=== PATIENT | male | born 1955 | race Caucasian/White ===

== ENCOUNTER 2022-02-23 20:51 | Inpatient (IN) | payer BC, OTHER ==
[~2022-02-23] VITALS: Ht 170.2 cm; Wt 70.8 kg
[2022-02-23 21:14] VITALS: BP_SYST 110
[2022-02-23 22:01] LABS: BASOPHILS # (AUTO) 0.1 K/uL (0.0-0.2); BASOPHILS % (AUTO) 1.4 % (0.0-2.0); EOSINOPHILS % (AUTO) 0.3 % (0.0-4.0); HEMATOCRIT 41.3 % (36-54); HEMOGLOBIN 14.4 g/dL (14.0-18.0); LYMPHOCYTES # (AUTO) 1.6 K/uL (1.0-5.5); LYMPHOCYTES % (AUTO) 16.5 % (20.5-51.5); MEAN CORPUSCULAR HEMOGLOBIN 31 pg (27-31); MEAN CORPUSCULAR HGB CONC 35 % (32-36); MEAN CORPUSCULAR VOLUME 89 fL (79.0-98.0); MONOCYTES # (AUTO) 0.6 K/uL (0.0-1.0); MONOCYTES % (AUTO) 6.4 % (1.7-9.3); NEUTROPHILS # (AUTO) 7.4 K/uL (1.8-7.7); NEUTROPHILS % (AUTO) 75.4 % (40.0-70.0); PLATELET COUNT (AUTO) 194 K/uL (130-430); RED BLOOD CELL COUNT(AUTO) 4.64 MIL/uL (4.2-6.2); RED CELL DISTRIBUTION WIDTH 15.4 % (9.0-15.0); WHITE BLOOD COUNT (AUTO) 9.9 K/uL (4.8-10.8)
[2022-02-23 22:15] LABS: CALCIUM 8.3 mg/dL (8.4-11.0); CREATININE 1.28 mg/dL (0.55-1.30); POTASSIUM 3.8 mmol/L (3.5-5.1)
[2022-02-23 22:21] LABS: ALBUMIN 3.6 g/dL (3.4-4.8); TOTAL BILIRUBIN 0.5 mg/dL (0.0-1.0)
--- NOTE | 2022-02-23 22:56 | NUR ---
Patient ambulatory to bed 1 for evaluation and treatment
[2022-02-24] MEDS ORDERED: NACL 0.9% 1,000 ML IV ONE (00:15)
[2022-02-24] MEDS ORDERED: MORPHINE 4 MG INJ. 4 MG/ML VIAL IVP ONE (00:15)
[2022-02-24] MEDS ORDERED: ONDANSETRON HCL 4 MG/2 ML VIAL IVP ONE (00:15)
[2022-02-24 01:37] LABS: BILIRUBIN,URINE NEGATIVE (NEGATIVE); BLOOD, URINE NEGATIVE (NEGATIVE); CLARITY/URINE CLEAR (CLEAR); COLOR,URINE YELLOW (YELLOW); GLUCOSE,URINE NEGATIVE (NEGATIVE); KETONES,URINE NEGATIVE (NEGATIVE); LEUKOCYTE ESTERASE ,URINE NEGATIVE (NEGATIVE); NITRITE, URINE NEGATIVE (NEGATIVE); PROTEIN URINE NEGATIVE (NEGATIVE); UROBILINOGEN,URINE 0.2 (0.2-1.0)
[2022-02-24] MEDS ORDERED: metroNIDAZOLE 500 mg/NS 100 ML IV ONE ×2 (02:30→05:16)
[2022-02-24] MEDS ORDERED: HYDROmorphone 1 MG/ML INJ. CARTRIDGE IVP ONE ×2 (02:30→05:15)
[2022-02-24] MEDS: CIPROFLOXACIN LACT 400 MG/D5W 200 ML IV SCH ×3 (02:56→23:43)
[2022-02-24] MEDS ORDERED: LORazepam 2 MG/ML VIAL ONE (03:12)
[2022-02-24] MEDS ORDERED: KETAMINE HCL 500 MG/10 ML VIAL IVP ONE (03:15)
[2022-02-24] MEDS ORDERED: LORazepam 2 MG/ML VIAL IVP ONE ×2 (03:15→05:15)
[2022-02-24] MEDS ORDERED: ONDANSETRON HCL 4 MG/2 ML VIAL IVP PRN ×2 (06:00→09:30)
[2022-02-24] MEDS ORDERED: MORPHINE 4 MG INJ. 4 MG/ML VIAL IVP PRN (06:00)
--- NOTE | 2022-02-24 06:15 | NUR ---
Admit bed requested Patient will be admitted to care of Admitted to MS unit. Diagnosis Acute Enteritis Inpatient (Yes or No) yes Observation (Yes or No) no Orientation concerns or request close to nursing station (Yes or No) no Covid Status negative On vent or bipap no Isolation requirements no Needs a sitter no From Home (Yes or if No enter name of facility) no Requires Dialysis (Yes or No) no Med Rec Completed (Yes of No)
--- NOTE | 2022-02-24 07:30 | NUR ---
ASSUMED CARE OF PT AT THIS TIME. REPORT RECEIVED. PT HERE FOR RUQ ABD PAIN X1 DAY. DENIES N/V. REPORTS PAIN 67/10 AT THIS TIME. VSS. AWAITING ADMISSION. WILL CONT TO MONITOR
[2022-02-24] MEDS ORDERED: TUBERCULIN,PURIF.PROT.DERIV. 0.1 ML SYR ID ONE (07:31)
[2022-02-24] MEDS ORDERED: DOCUSATE SODIUM 100 MG/10 ML UDC PO PRN (09:30)
[2022-02-24] MEDS ORDERED: ZOLPIDEM TARTRATE 5 MG TABLET PO PRN (09:30)
[2022-02-24] MEDS ORDERED: guaiFENesin/DEXTROMETHORPHAN 10 ML UDC PO PRN (09:30)
[2022-02-24] MEDS ORDERED: ACETAMINOPHEN 500 MG TABLET PO PRN (09:30)
[2022-02-24] MEDS ORDERED: HYDROcodone/ACETAMIN 7.5-325 MG TAB PO PRN (09:30)
[2022-02-24] MEDS ORDERED: KETOROLAC TROMETHAMINE 15 MG VIAL IVP PRN (09:45)
[2022-02-24] MEDS ORDERED: methylPREDNISolone SOD SUCC/PF 62.5 MG/ML VIAL IVP ONE (10:00)
[2022-02-24] MEDS ORDERED: PANTOPRAZOLE SODIUM 40 MG TAB PO ONE (10:30)
--- NOTE | 2022-02-24 10:34 | NUR ---
CONSULTATION PAGED/CALLED Reason for Consultation: [] ACUTE ENTERITIS Person Who was Notified: [] LEISA Consulting Physician: [] DR DORSEY Crane Hooker Specialty: [] GI Ordering Physician: [] DR PEACE
[2022-02-24 10:35] VITALS: BP_SYST 130
--- NOTE | 2022-02-24 10:35 | NUR ---
ADMISSION NOTE: Received patient from ER via wheelchair. Patient admitted with diagnosis of Acute Enteritis . Patient is awake, alert, oriented X 4. Patient oriented to hospital room, call light, toileting, pain management and safety-teach back done. Patient informed that their room number is 109A. Personal belongings checked and Belongings List documented. Call light within reach.
[2022-02-24 11:06] LABS: PROTHROMBIN TIME 10.4 SECS (9.5-12.5)
[2022-02-24] MEDS: D5NS 1,000 ML IV SCH ×2 (11:11→17:38)
[2022-02-24] MEDS: MORPHINE 2 MG/ML INJ. SYRINGE IVP PRN ×3 (11:17→20:03)
[2022-02-24 11:18] LABS: FREE T4 (FREE THYROXINE) 0.7 ng/dl (0.8-1.5); PHOSPHORUS 3.5 mg/dL (2.7-4.5); THYROID STIMULATING HORMONE 2.42 uIu/mL (0.36-3.74)
[2022-02-24 14:30] VITALS: BP_SYST 123
--- NOTE | 2022-02-24 19:00 | NUR ---
CLOSING NOTES: Patient resting in bed, all needs met throughout shift, IV in place, patent and infusing well, BRP, safety precaution observed, call light within reach. Will endorse to farm owner operator nurse.
[2022-02-24 20:00] VITALS: BP_SYST 114
--- NOTE | 2022-02-24 20:00 | NUR ---
RECEIVED PATIENT ALERT, ORIENTED, ABLE TO MAKE NEEDS KNOWN, NO S/S OF DISTRESS OR DISCOMFORT NOTED, BREATHING EVEN AND UNLABORED, BRP, IV IN PLACE, INTACT AND INFUSING WELL, SAFETY PRECAUTIONS OBSERVED, BED IN LOWEST POSITION, CALL LIGHT WITHIN REACH, WILL CONTINUE TO MONITOR.
[2022-02-24] MEDS ORDERED: CIPROFLOXACIN LACT 400 MG/D5W 200 ML IV ONE (23:14)
[2022-02-25] VITALS: BP_SYST 117
[2022-02-25] MEDS: MORPHINE 2 MG/ML INJ. SYRINGE IVP PRN ×5 (00:16→22:26)
[2022-02-25] MEDS: D5NS 1,000 ML IV SCH ×3 (03:02→18:50)
--- NOTE | 2022-02-25 06:43 | NUR ---
PT RESTING COMFORTABLY IN BED, NO DISTRESS OR DISCOMFORT NOTED, REPOSITIONS SELF PER COMFORT, ALL FALL PROTOCOLS IMPLEMENTED, WILL CONTINUE TO MONITOR.
[2022-02-25 07:14] LABS: BASOPHILS % (AUTO) 0.2 % (0.0-2.0); HEMATOCRIT 35.8 % (36-54); HEMOGLOBIN 12.4 g/dL (14.0-18.0); LYMPHOCYTES # (AUTO) 1.1 K/uL (1.0-5.5); LYMPHOCYTES % (AUTO) 12.9 % (20.5-51.5); MEAN CORPUSCULAR HEMOGLOBIN 31 pg (27-31); MEAN CORPUSCULAR HGB CONC 35 % (32-36); MEAN CORPUSCULAR VOLUME 89 fL (79.0-98.0); MONOCYTES # (AUTO) 0.7 K/uL (0.0-1.0); MONOCYTES % (AUTO) 8.5 % (1.7-9.3); NEUTROPHILS # (AUTO) 6.9 K/uL (1.8-7.7); NEUTROPHILS % (AUTO) 78.4 % (40.0-70.0); PLATELET COUNT (AUTO) 176 K/uL (130-430); RED CELL DISTRIBUTION WIDTH 15.2 % (9.0-15.0); WHITE BLOOD COUNT (AUTO) 8.7 K/uL (4.8-10.8)
--- NOTE | 2022-02-25 07:15 | NUR ---
SHIFT CHANGE REPORT REPORT GIVEN TO SAM ALEXANDER FOR CONTINUITY OF CARE, ALL QUESTIONS WERE ANSWERED AND RN VERBALIZED UNDERSTANDING.
[2022-02-25 08:00] VITALS: BP_SYST 122
--- NOTE | 2022-02-25 08:00 | NUR ---
OPENING NOTES: PATIENT RESTING IN BED. BREATHING EVEN AND NON LABORED TO RA. FALL AND SAFETY MEASURES REINFORCED. CALL LIGHT WITHIN REACH
--- NOTE | 2022-02-25 08:00 | NUR ---
OPENING NOTES: PATIENT RESTING IN BED. BREATHING EVEN AND NON LABORED TO RA. FALL AND SAFETY MEASURES REINFORCED. CALL LIGHT WITHIN REACH.
[2022-02-25 08:04] LABS: CREATININE 0.87 mg/dL (0.55-1.30); POTASSIUM 3.8 mmol/L (3.5-5.1)
[2022-02-25] MEDS ORDERED: POTASSIUM CHLORIDE 20 MEQ TAB.PRT.SR PO PRN (09:00)
[2022-02-25 09:34] LABS: CALCIUM 6.7 mg/dL (8.4-11.0)
[2022-02-25] MEDS: PANTOPRAZOLE SODIUM 40 MG TAB PO SCH (09:55)
[2022-02-25] MEDS: CIPROFLOXACIN LACT 400 MG/D5W 200 ML IV SCH ×2 (10:49→22:00)
[2022-02-25] MEDS ORDERED: POLYETHYLENE GLYCOL 3350, 17 GM/ POWD.PACK PO ONE (11:15)
[2022-02-25] MEDS ORDERED: GASTROGRAFIN 120 ML ONE (11:30)
[2022-02-25 12:00] VITALS: BP_SYST 118
[2022-02-25 16:00] VITALS: BP_SYST 115
--- NOTE | 2022-02-25 19:10 | NUR ---
CLOSING NOTES: PATIENT RESTING IN BED. NO S/S OF ACUTE DISTRESS NOTED. NEEDS MET THROUGHOUT SHIFT. ENDORSED TO HORSEBACK RIDING INSTRUCTOR RN.
[2022-02-25 20:00] VITALS: BP_SYST 111
[2022-02-26] MEDS: MORPHINE 2 MG/ML INJ. SYRINGE IVP PRN ×5 (02:48→23:26)
[2022-02-26] MEDS: D5NS 1,000 ML IV SCH ×3 (03:32→20:03)
[2022-02-26 07:22] LABS: BASOPHILS # (AUTO) 0.1 K/uL (0.0-0.2); BASOPHILS % (AUTO) 0.7 % (0.0-2.0); EOSINOPHILS # (AUTO) 0.2 K/uL (0.0-0.4); EOSINOPHILS % (AUTO) 2.7 % (0.0-4.0); HEMATOCRIT 34.8 % (36-54); LYMPHOCYTES # (AUTO) 2.6 K/uL (1.0-5.5); LYMPHOCYTES % (AUTO) 31.4 % (20.5-51.5); MEAN CORPUSCULAR HEMOGLOBIN 31 pg (27-31); MEAN CORPUSCULAR HGB CONC 35 % (32-36); MEAN CORPUSCULAR VOLUME 90 fL (79.0-98.0); MONOCYTES # (AUTO) 0.7 K/uL (0.0-1.0); MONOCYTES % (AUTO) 8.6 % (1.7-9.3); NEUTROPHILS # (AUTO) 4.7 K/uL (1.8-7.7); NEUTROPHILS % (AUTO) 56.6 % (40.0-70.0); PLATELET COUNT (AUTO) 176 K/uL (130-430); RED BLOOD CELL COUNT(AUTO) 3.85 MIL/uL (4.2-6.2); RED CELL DISTRIBUTION WIDTH 15.6 % (9.0-15.0); WHITE BLOOD COUNT (AUTO) 8.4 K/uL (4.8-10.8)
[2022-02-26 07:30] VITALS: BP_SYST 107
[2022-02-26 07:40] LABS: CREATININE 0.84 mg/dL (0.55-1.30); POTASSIUM 3.4 mmol/L (3.5-5.1)
[2022-02-26 07:56] LABS: CALCIUM 7.8 mg/dL (8.4-11.0)
[2022-02-26] MEDS ORDERED: DICYCLOMINE HCL 10 MG/5 ML SOLUTION PO PRN ×2 (10:30→10:57)
[2022-02-26] MEDS: PANTOPRAZOLE SODIUM 40 MG TAB PO SCH (11:04)
[2022-02-26 12:30] VITALS: BP_SYST 132
--- NOTE | 2022-02-26 12:56 | NUR ---
Dietitian Recommendations * Continue w/ mechanical soft diet Please refer to Nutrition Assessment for details. Addendum: 02/26/22 at [address] Amended: Links added.
[2022-02-26] MEDS: POLYETHYLENE GLYCOL 3350, 17 GM/ POWD.PACK PO SCH (12:59)
[2022-02-26] MEDS ORDERED: MAGNESIUM CITRATE 300 ML ORAL SOLUTION PO ONE (15:00)
[2022-02-26 16:30] VITALS: BP_SYST 128
[2022-02-27 03:30] VITALS: BP_SYST 125
[2022-02-27] MEDS: MORPHINE 2 MG/ML INJ. SYRINGE IVP PRN ×3 (03:33→12:59)
[2022-02-27 04:00] VITALS: BP_SYST 125
[2022-02-27] MEDS: D5NS 1,000 ML IV SCH ×2 (04:24→11:48)
[2022-02-27 06:41] LABS: BASOPHILS # (AUTO) 0.1 K/uL (0.0-0.2); BASOPHILS % (AUTO) 0.8 % (0.0-2.0); EOSINOPHILS # (AUTO) 0.2 K/uL (0.0-0.4); EOSINOPHILS % (AUTO) 2.8 % (0.0-4.0); HEMATOCRIT 34.5 % (36-54); LYMPHOCYTES # (AUTO) 2.8 K/uL (1.0-5.5); LYMPHOCYTES % (AUTO) 35.4 % (20.5-51.5); MEAN CORPUSCULAR HEMOGLOBIN 31 pg (27-31); MEAN CORPUSCULAR HGB CONC 35 % (32-36); MEAN CORPUSCULAR VOLUME 89 fL (79.0-98.0); MONOCYTES # (AUTO) 0.9 K/uL (0.0-1.0); MONOCYTES % (AUTO) 11.8 % (1.7-9.3); NEUTROPHILS # (AUTO) 3.9 K/uL (1.8-7.7); NEUTROPHILS % (AUTO) 49.2 % (40.0-70.0); PLATELET COUNT (AUTO) 184 K/uL (130-430); RED BLOOD CELL COUNT(AUTO) 3.87 MIL/uL (4.2-6.2); RED CELL DISTRIBUTION WIDTH 15.4 % (9.0-15.0); WHITE BLOOD COUNT (AUTO) 7.9 K/uL (4.8-10.8)
[2022-02-27 07:33] LABS: CALCIUM 7.3 mg/dL (8.4-11.0); CREATININE 0.9 mg/dL (0.55-1.30); POTASSIUM 3.5 mmol/L (3.5-5.1)
[2022-02-27 08:00] VITALS: BP_SYST 127
--- NOTE | 2022-02-27 08:00 | NUR ---
Morning notes: Pt is A/Ox4, resting in bed. No s/s respiratory ar cardiac distress. RAC IV site is clean dry and intact with ordered fluids running. Fall and safety precautions are in place, call light with in reach, will continue to monitor.
[2022-02-27] MEDS: PANTOPRAZOLE SODIUM 40 MG TAB PO SCH (08:48)
[2022-02-27] MEDS: POLYETHYLENE GLYCOL 3350, 17 GM/ POWD.PACK PO SCH (08:48)
[2022-02-27 12:00] VITALS: BP_SYST 125
[2022-02-27 16:00] VITALS: BP_SYST 125
[2022-02-27] MEDS ORDERED: HYDROmorphone 1 MG/ML INJ. CARTRIDGE IVP PRN (18:45)
[2022-02-27] MEDS ORDERED: NALOXONE HCL 0.4 MG/ML AMP (NARCAN) IVP PRN (18:45)
--- NOTE | 2022-02-27 18:59 | NUR ---
Closing notes: Pt is A/Ox4, resting in bed. No s/s of respiratory or cardiac distress. RAC IV site is clean dry and intact SL. Fall and safety precautions are in place, call light with in reach, will endorse to commercial airline pilot.
[2022-02-27] MEDS: cephALEXin 500 MG CAPSULE PO SCH ×2 (19:05→23:03)
--- NOTE | 2022-02-27 19:15 | NUR ---
OPENING NOTE REPORT RECEIVED FROM DAYSHIFT NURSE. PATIENT RECEIVED LYING IN BED, AWAKE, NO S/S OF ACUTE DISTRESS. BREATHING EVEN AND UNLABORED. IV SITE PATENT, NO SIGNS OF INFILTRATION OR INFECTION NOTED. CALL LIGHT WITH PATIENT. BED IS LOCKED AND AT LOWEST POSITION. WILL CONTINUE TO MONITOR.
[2022-02-27 20:00] VITALS: BP_SYST 136
[2022-02-27] MEDS: HYDROmorphone 1 MG/ML INJ. CARTRIDGE IVP PRN (23:04)
[2022-02-28] VITALS: BP_SYST 124
[2022-02-28] MEDS: HYDROmorphone 1 MG/ML INJ. CARTRIDGE IVP PRN ×5 (03:03→22:43)
--- NOTE | 2022-02-28 06:34 | NUR ---
CLOSING NOTE PATIENT IN BED, RESTING AT THIS TIME. NO S/S OF ACUTE DISTRESS NOTED. BREATHING EVEN AND UNLABORED. HOB RAISED. IV SITE PATENT, NO SIGNS OF INFILTRATION OR INFECTION NOTED. ALL NEEDS MET THROUGHOUT SHIFT. FALL, SAFETY PRECAUTIONS MAINTAINED THROUGHOUT SHIFT. WILL CONTINUE TO MONITOR UNTIL PATIENT CARE IS ENDORSED TO ONCOMING DAYSHIFT NURSE.
[2022-02-28 06:38] LABS: BASOPHILS # (AUTO) 0.1 K/uL (0.0-0.2); EOSINOPHILS # (AUTO) 0.3 K/uL (0.0-0.4); EOSINOPHILS % (AUTO) 3.5 % (0.0-4.0); HEMATOCRIT 38.3 % (36-54); HEMOGLOBIN 13.3 g/dL (14.0-18.0); LYMPHOCYTES # (AUTO) 2.5 K/uL (1.0-5.5); MEAN CORPUSCULAR HEMOGLOBIN 31 pg (27-31); MEAN CORPUSCULAR HGB CONC 35 % (32-36); MEAN CORPUSCULAR VOLUME 89 fL (79.0-98.0); MONOCYTES # (AUTO) 0.8 K/uL (0.0-1.0); MONOCYTES % (AUTO) 10.3 % (1.7-9.3); NEUTROPHILS # (AUTO) 4.3 K/uL (1.8-7.7); NEUTROPHILS % (AUTO) 54.2 % (40.0-70.0); PLATELET COUNT (AUTO) 210 K/uL (130-430); RED BLOOD CELL COUNT(AUTO) 4.32 MIL/uL (4.2-6.2)
[2022-02-28] MEDS: cephALEXin 500 MG CAPSULE PO SCH ×3 (06:46→17:34)
[2022-02-28 07:10] LABS: CALCIUM 7.9 mg/dL (8.4-11.0); CREATININE 0.81 mg/dL (0.55-1.30); POTASSIUM 3.3 mmol/L (3.5-5.1)
[2022-02-28 08:00] VITALS: BP_SYST 106
[2022-02-28] MEDS: POLYETHYLENE GLYCOL 3350, 17 GM/ POWD.PACK PO SCH (09:02)
[2022-02-28] MEDS: PANTOPRAZOLE SODIUM 40 MG TAB PO SCH (09:02)
[2022-02-28] MEDS ORDERED: HYDROcodone/ACETAMIN 5-325 MG TAB (NORCO/ VICODIN) PO PRN (09:30)
[2022-02-28] MEDS ORDERED: NALOXONE HCL 0.4 MG/ML AMP (NARCAN) IVP PRN (09:30)
[2022-02-28] MEDS ORDERED: BISACODYL 5 MG TABLET.DR (DULCOLAX) PO ONE (17:00)
[2022-02-28] MEDS ORDERED: GOLYTELY / COLYTE SOLUTION 4 LITERS PO ONE (18:00)
--- NOTE | 2022-02-28 19:00 | NUR ---
PATIENT REMAINED COMFORTABLE W/O ANY CHANGE IN LOC. MEDICATED PRN FOR ABDOMINAL PAIN. CLEAR LIQUID FOR NOW NPO POST MIDNIGHT FOR EGD AND COLONOSCOPY TOMORROW. BOWEL PREP STARTED ORDERED. ENDORSED PATIENT TO PM SHIFT NURSE.
--- NOTE | 2022-02-28 19:30 | NUR ---
PM OPENING NOTES HAND-OFF REPORT RECEIVED FROM SUSANA ALEXANDER. ENDORSED PT NPO AFTER MN FOR EGD/COLONOSCOPY. GOLYTELY BEGAN PT TOLERATING WELL WITH RESULTS ON-GOING. REPORTED CONSENTS SIGNED AND ON CHART. L WRIST 22 GA INTACT. PT OBSERVED A/0X4, GAIT STEADY. DENIES NEEDS PRESENTLY. BED IN LOWEST POSITION AND WHEELS LOCKED. CALL LIGHT FUNCTIONING. CONT TO MONITOR AND ASSIST NEEDED.
[2022-02-28 20:00] VITALS: BP_SYST 104
[2022-03-01] VITALS: BP_SYST 110
--- NOTE | 2022-03-01 | NUR ---
PRN MEDS FOR PAIN SEE E-MAR. PT PAIN LEVEL /10. DILAUDID BRINGS TO 5/10 AT BEST. CONT'D PT TEACHING CONCERNING CHG BATH 1.5 HOURS PRIOR TO PROCEDURE AND NPO PROTOCOL. VERY FREQUENT EVACUATION OF BOWELS THRU OUT NOC. CONT TO MONITOR. GOLYTELY COMPLETED
[2022-03-01] MEDS: HYDROmorphone 1 MG/ML INJ. CARTRIDGE IVP PRN ×3 (03:19→13:00)
[2022-03-01 04:00] VITALS: BP_SYST 118
[2022-03-01 05:19] LABS: CALCIUM 8.5 mg/dL (8.4-11.0); CREATININE 0.84 mg/dL (0.55-1.30); POTASSIUM 3.6 mmol/L (3.5-5.1)
[2022-03-01 05:23] LABS: BASOPHILS # (AUTO) 0.1 K/uL (0.0-0.2); BASOPHILS % (AUTO) 1.2 % (0.0-2.0); EOSINOPHILS # (AUTO) 0.3 K/uL (0.0-0.4); EOSINOPHILS % (AUTO) 3.8 % (0.0-4.0); HEMATOCRIT 40.3 % (36-54); HEMOGLOBIN 13.9 g/dL (14.0-18.0); LYMPHOCYTES # (AUTO) 2.4 K/uL (1.0-5.5); LYMPHOCYTES % (AUTO) 26.2 % (20.5-51.5); MEAN CORPUSCULAR HEMOGLOBIN 31 pg (27-31); MEAN CORPUSCULAR HGB CONC 35 % (32-36); MEAN CORPUSCULAR VOLUME 89 fL (79.0-98.0); MONOCYTES # (AUTO) 1.1 K/uL (0.0-1.0); MONOCYTES % (AUTO) 11.7 % (1.7-9.3); NEUTROPHILS # (AUTO) 5.2 K/uL (1.8-7.7); NEUTROPHILS % (AUTO) 57.1 % (40.0-70.0); PLATELET COUNT (AUTO) 183 K/uL (130-430); RED BLOOD CELL COUNT(AUTO) 4.52 MIL/uL (4.2-6.2); RED CELL DISTRIBUTION WIDTH 15.5 % (9.0-15.0); WHITE BLOOD COUNT (AUTO) 9.1 K/uL (4.8-10.8)
[2022-03-01] MEDS: cephALEXin 500 MG CAPSULE PO SCH ×2 (06:00)
[2022-03-01] MEDS ORDERED: BENZOCAINE 20% 0.5mL UD SPRAY MM ONE (07:27)
[2022-03-01] MEDS ORDERED: SIMETHICONE 40 MG/0.6 ML ML ONE (07:27)
[2022-03-01] MEDS ORDERED: fentaNYL CITRATE/PF 100 MCG/2 ML AMP ONE (07:28)
[2022-03-01] MEDS ORDERED: MEPERIDINE 100 MG INJ. 100 MG/ML VIAL ONE (07:28)
--- NOTE | 2022-03-01 07:30 | NUR ---
CLOSING NOTES PM SHIFT PRN PAIN MED AT THIS TIME SEE EMAR. HAND-OFF REPORT TO SUSANA ALEXANDER. NPO SINCE MN, FREQUENT BOWEL MOVEMENTS AND CLEARING NICELY. ON SCHEDULE FOR 0930 FOR PROCEDURE. INSTRUCTED CHG BATH FOR 0800. CHG [place] AND [place] PROVIDED FOR PROVIDED FOR PT IN BATHROOM. STATED UNDERSTOOD. RELINQUISHED CARE TO SUSANA ALEXANDER.
[2022-03-01] MEDS: MIDAZOLAM HCL 5 MG/5 ML VIAL ONE ×3 (08:56→09:09)
[2022-03-01] MEDS ORDERED: POLY17PO4 PO (12:49)
[2022-03-01 15:59] VITALS: BP_SYST 112
--- NOTE | 2022-03-01 16:28 | NUR ---
Discharge appointments and vendors arranged by [facility] [employer]. Dr. Franklin [facility] will call with date and time Dr. Mehta Engineer Sergeant [facility] will call with date and time Please call Patient Support Center [phone] for worsening symptoms or trouble getting your medicine. For care needs when provider office is closed, contact Lana [facility] at [phone] or Mercedes [facility] [phone].
--- NOTE | 2022-03-01 16:30 | NUR ---
0800: AWAKE, ALERT, ORIENTED X 4 TO NAME, PERSON, PLACE, AND TIME. RESPIRATION EVEN AND UNLABORED NO S/S OF ANY ACUTE DISTRESS NOTED. ABLE TO VERBALIZE NEED NO C/O ANY PAIN OR DISCOMFORT NOTED. ABDOMEN SOFT AND NON-DISTENDED, POSITIVE BOWEL SOUND X 4 NO N/V OR DIARRHEA NOTED. SKIN WARM AND DRY INTACT W/O ANY REDNESS OR EDEMA NOTED. OLD IV SITE RIGHT UPPER ARM SWOLLEN AND WARM TO TOUCH, OFFERED ICE PACK FOR SITE PATIENT REFUSED. PATIENT IS NPO TODAY FOR SCHEDULE EGD AND COLONOSCOPY BY DR. Clyde MAC. BOWEL PREP COMPLETED WITH GOOD RESULT. WILL CONTINUE TO MONITOR PATIENT 1030: PATIENT LEFT THE UNIT FOR EGD AND COLONOSCOPY PLANNED, 1200: PATIENT BACK FROM GI LAB, FINDING: GERD, GASTRITIS, TI STRICTURE. OK TO ADVANCED DIET TO SOFT. 1630: TOLERATED PO WELL WITH FAIR APPETITE NO N/V NOTED. DR. DOBBINS ON THE UNIT. PATIENT OK TO DC'D HOME WITH NEW PRESCRIPTION FOR MIRALAX PO PRN. DISCHARGE INSTRUCTION GIVEN INCLUDING S/S OF INFECTION DUE TO RIGHT UPPER ARM IV INFILTRATE THAT IS RED AND SWOLLEN, INSTRUCTED PATIENT TO KEEP SITE CLEAN APPLY TROPICAL ANTIBIOTIC AND MONITOR FOR PURULENT DRAINAGE. IF FEVERISH AND DRAINAGE FROM SITE TO MD OFFICE OR THE NEAREST ER FOR TREATMENT. PATIENT AND SPOUSE BOTH VERBALIZE UNDERSTANDING AND WILL COMPLY WITH DC'D INSTRUCTION GIVEN. F/U WITH OWN PRIMARY CARE PHYSICIAN AND DR. MAC NEXT WEEK.
--- NOTE | 2022-03-01 16:48 | NUR ---
Patient: REMEDIOS GAMBOA Provider: GINGER MCCRAY Provider Date and Time: 03/06/2022 02:00 PM Appointment Type: PCP Appointment
--- NOTE | 2022-03-08 14:57 | NUR ---
Needle Polisher MENTAL HEALTH COUNSELOR made a Post Discharge Follow Up Phone Call to former pt. who stated, "I never want to hear from [facility] again" Click....
== END 2022-03-01 16:22 | disposition home or self-care (01) | DRG 386 ==
LOC: SED 20:51 → SMU 02-24 06:00
PROVIDERS: ADMIT Family Medicine; ATTEND Internal Medicine
PROC: 0D7E8ZZ Dilation of Large Intestine, Via Natural or Artificial Opening Endoscopic (ICD-10-PCS; 2022-03-01)
PROC: 0DB98ZX Excision of Duodenum, Via Natural or Artificial Opening Endoscopic, Diagnostic (ICD-10-PCS; principal; 2022-03-01 08:45)
PROC: 0DB78ZX Excision of Stomach, Pylorus, Via Natural or Artificial Opening Endoscopic, Diagnostic (ICD-10-PCS; 2022-03-01 08:45)
PROC: 0DBB8ZX Excision of Ileum, Via Natural or Artificial Opening Endoscopic, Diagnostic (ICD-10-PCS; 2022-03-01 08:45)
DX: K50.90 Crohn's disease, unspecified, without complications (principal); E87.1 Hypo-osmolality and hyponatremia; K59.00 Constipation, unspecified; Z20.822 Contact with and (suspected) exposure to COVID-19; K21.9 Gastro-esophageal reflux disease without esophagitis; K29.70 Gastritis, unspecified, without bleeding; K64.8 Other hemorrhoids
CPT/HCPCS: 36415; 43239; 45380; 71045; 74250-TC; 76376; 76705; 80048; 80053; 80061; 81003; 82150; 83036; 83605; 83690; 83735; 83880; 84100; 84439; 84443; 85025; 85610-TC; 85651-TC; 85730-TC; 86140; 86580; 87081; 88305; 88312; 88313; 96374; 96375; 96376; 99285; J0744; J1170; J1885; J2060; J2175; J2250; J2270; J2405; J2930; J3010; J3490; J7030; Q9963

== ENCOUNTER 2022-06-24 09:36 | Emergency (ER) | payer OTHER, BC ==
[~2022-06-24] VITALS: Ht 170.2 cm; Wt 70.3 kg
[~2022-06-24 09:36] MED LIST: POLY17PO4 PO
[2022-06-24 09:43] VITALS: BP_SYST 134
[2022-06-24] MEDS ORDERED: traMADol HCL HCL 50 MG TABLET (ULTRAM) PO ONE (10:00)
[2022-06-24] MEDS ORDERED: NAPROXEN 250 MG TABLET PO ONE (10:00)
--- NOTE | 2022-06-24 10:00 | NUR ---
MD DR JENKINS AT BEDSIDE
--- NOTE | 2022-06-24 10:11 | NUR ---
PT BIB SELF AWAKE AND ALERT, AO X4. PT C/O PAIN TO R SHOULDER, TRAPEZIUSA MUSCLE X11 DAYS. PT STATS PAIN 8/10, THAT RADIATES TO R ELBOW AND FINGERS. PT DENIES N/V, TRAUMA. PT STATES HIS ARM HURTS IF HE STAND UP, THE ONLY WAY TO RELIEVE THE PAIN HIS TO SIT AND PLACE HIS R ARM ON PILLOWS. PT HAD HX OF ABDOMINAL SX AND BILATERAL KNEE SX.
[2022-06-24] MEDS ORDERED: predniSONE 20 MG TABLET PO ONE (10:15)
[2022-06-24] MEDS ORDERED: TRAM50TA PO (11:13)
[2022-06-24] MEDS ORDERED: PRED50TA PO (11:13)
[2022-06-24] MEDS ORDERED: NAPR-688 PO (11:13)
--- NOTE | 2022-06-24 11:32 | NUR ---
Patient given written and verbal discharge instructions and verbalizes understanding. ER MD DR JENKINS discussed with patient the results and treatment provided. Patient in stable condition. ID arm band removed. Rx of NAPROXEN, PREDNISONE, TRAMODOL given. Patient educated on pain management and to follow up with PMD. Pain Scale 5/10 . Opportunity for questions provided and answered. Medication side effect fact sheet provided.
[2022-06-24 11:35] VITALS: BP_SYST 120
== END 2022-06-24 11:35 | disposition home or self-care (01) ==
LOC: SED 09:36
DX: M54.12 Radiculopathy, cervical region (principal); M25.511 Pain in right shoulder; Z79.899 Other long term (current) drug therapy
CPT/HCPCS: 99284; 72040; 73030; J7512